=== PATIENT | male | born 1975 | race Caucasian/White ===

== ENCOUNTER 2017-05-30 09:17 | Emergency (ER) | payer SELFPAY ==
[~2017-05-30] VITALS: Ht 167.6 cm; Wt 72.0 kg
[~2017-05-30 09:17] MED LIST: CYCL5TAB PO; NAPR-576 PO
[2017-05-30 09:22] VITALS: BP 109/66; PULSE 62; RESP 16; TEMP 97.9; O2SAT 98
[2017-05-30] MEDS ORDERED: IBUP1TAB7 PO (10:15)
[2017-05-30] MEDS ORDERED: ROBA750T PO (10:16)
--- NOTE | 2017-05-30 10:16 | PD ---
HPI Chief Complaint: Musculoskeletal Complaint Time Seen by Provider: 09:41 Travel History International Travel<30 days: No Contact w/Intl Traveler<30days: No Traveled to known affect area: No History of Present Illness HPI Is is a 41-year-old male here with left low back pain 3 days. He reports he was lifting heavy seeds from his van when he felt pain in the low back. He reports pain is worse with movement and slightly relieved with rest. He denies fever, chills, saddle anesthesia, incontinence, paresthesia or weakness of the extremities. Severity is moderate. PFSH Past Medical History Medical History: Denies Significant Hx Cardiovascular Problems: Yes (HEART MURMUR) Immunizations Current: Yes Influenza Vaccination: No Past Surgical History Surgical History: No Previous Surgery Social History Alcohol Use: Yes (occ) Tobacco Use: Yes (/ ppd) Substance Use: No (denies) Allergies-Medications (Allergen,Severity, Reaction): Coded Allergies: No Known Allergies (Unverified Adverse Reaction, Unknown, 05/30/17) Reported Meds & Prescriptions Reported Meds & Active Scripts Active No Active Prescriptions or Reported Medications Review of Systems Except as stated in HPI: all other systems reviewed are Neg General / Constitutional: No: Fever Physical Exam Narrative GENERAL: Alert and well-appearing 41-year-old male SKIN: Warm and dry. HEAD: Normocephalic. EYES: No scleral icterus. No injection or drainage. NECK: Supple CARDIOVASCULAR: Regular rate and rhythm RESPIRATORY: Breath sounds equal bilaterally. No accessory muscle use. GASTROINTESTINAL: Abdomen soft, non-tender, nondistended. MUSCULOSKELETAL: No cyanosis, or edema. Normal strength and sensation in lower extremity. BACK: without obvious deformity. No CVA tenderness. +TTP lumbar soft tissue musculature. No midline spine tenderness. Data Data Last Documented VS Vital Signs Date Time Temp Pulse Resp B/P (MAP) Pulse Ox O2 Delivery O2 Flow Rate FiO2 05/30/17 09:22 97.9 62 16 109/66 (80) 98 MDM Medical Decision Making Medical Screen Exam Complete: Yes Emergency Medical Condition: Yes Differential Diagnosis Lumbar strain, nephrolithiasis, herniated disc Narrative Course This is a 41-year-old male with left lumbar strain. He is nontoxic-appearing. He has a normal neurologic exam. Patient be treated with NSAIDs and muscle relaxers. Diagnosis Primary Impression: Lumbar strain Qualified Codes: S39.012A - Strain of muscle, fascia and tendon of lower back , initial encounter Referrals: Primary Care Physician Additional Instructions: Avoid heavy lifting or strenuous activity. Medication as directed. Follow-up the primary doctor Scripts Methocarbamol (Robaxin) 750 Mg Tab 750 MG PO QID for Muscle Spasm, #14 TAB 0 Refills Prov: Pam Infante 05/30/17 Ibuprofen (Ibuprofen) 800 Mg Tab 800 MG PO Q6HR Y for PAIN, #40 TAB 0 Refills Prov: Pam Infante 05/30/17 Disposition: 01 DISCHARGE HOME Condition: Stable Pam Infante May 30, 2017 10:16
== END 2017-05-30 10:24 | disposition home or self-care (01) ==
LOC: PHEFT 09:17
DX: S39.012A Strain of muscle, fascia and tendon of lower back, initial encounter (principal); R01.1 Cardiac murmur, unspecified; F17.200 Nicotine dependence, unspecified, uncomplicated; X50.0XXA Overexertion from strenuous movement or load, initial encounter
CPT/HCPCS: 99283